=== PATIENT | female | born 1970 | race Caucasian/White ===

== ENCOUNTER 2016-09-20 04:54 | Emergency (ER) | payer OTHER ==
[~2016-09-20 04:54] MED LIST: ALBUTEROL17 GM INH; ALPRAZOLAM PO; BENZONATATE PO; CYMBALTA PO; DOXYCYCLINE PO; FERROUS SULFATE; FLEXERIL PO; IBUPROFEN PO; IBUPROFEN800 MG PO; KLONOPIN PO; LEVAQUIN PO; MONODOX100 MG PO; MUCINEX DM1 TAB.SR . PO; NO MEDICATIONS; OMNICEF300 MG PO; OPANA; PERCOCET5/325 PO; PREDNISONE PO; PROMETHAZINE-D240 ML PO; ROBITUSSIN A-C10 ML PO; TUSSIONEX PENN473 ML PO; TYLENOL #3; ZITHROMAX PO; ZOVIRAX200 MG PO
== END 2016-09-20 06:10 | disposition home or self-care (01) ==
LOC: SED 04:54
DX: H61.21 Impacted cerumen, right ear (principal); J44.9 Chronic obstructive pulmonary disease, unspecified; F17.200 Nicotine dependence, unspecified, uncomplicated; Z88.6 Allergy status to analgesic agent; Z79.899 Other long term (current) drug therapy
CPT/HCPCS: 99282